=== PATIENT | male | born 1970 | race Caucasian/White ===

== ENCOUNTER 2016-11-19 21:30 | Observation (INO) | payer OTHER ==
[~2016-11-19] VITALS: Ht 175.3 cm; Wt 125.2 kg
--- NOTE | ~2016-11-19 | OR ---
Unit #: [id number] #: [id number] Patient: SUSAN DEL REAL [id number] [address] [address] [id number] I MR#: [id number] NAME: SUSAN DEL REAL ROOM: [facility] Date of Procedure: 11/20/2016 Admission Date: 11/20/2016 Surgeon: Gabe Crain M.D. : 1970 Attending Physician: Gabe Crain M.D. Primary Care Physician: Primary Care Physician No OPERATIVE REPORT PREOPERATIVE DIAGNOSIS Appendicitis. POSTOPERATIVE DIAGNOSIS Appendicitis. PROCEDURE PERFORMED Laparoscopic appendectomy. ORDNANCE HANDLER None. ANESTHESIA General. ESTIMATED BLOOD LOSS Minimal. IV FLUIDS 900 crystalloid. COMPLICATIONS None. INDICATIONS FOR PROCEDURE The patient is a 46-year-old with findings consistent with appendicitis. DESCRIPTION OF PROCEDURE The patient was taken to the operative theater and placed in supine position. General anesthesia was induced. The abdomen was prepped and draped. A 5-mm Optiview trocar was placed in left of the midline without difficulty. The abdomen was insufflated to 15 mmHg with CO2. The patient was placed in Trendelenburg. I placed a right lower quadrant 10 mm and left lower quadrant 5 mm ports. General inspection of the abdomen revealed acute suppurative appendicitis. I mobilized the cecum as well as the appendix from its retroperitoneal attachments using Bovie electrocautery. I fired a ADRIAN stapler across the base of the appendix as well as the mesoappendix. This was then placed into an Endobag and removed. I irrigated with normal saline, aspirated all fluids dry. Hemostasis was adequate. I removed the ports under direct vision and closed the fascia with 0 Vicryl and skin with 4-0 Vicryl. The patient tolerated the procedure well and was sent to the recovery room in good Unit #: [id number] #: [id number] Patient: SUSAN DEL REAL condition. Dictated by... Monico James/eligio TD: 11/21/2016 05:01 JOB #: [id number] OPERATIVE REPORT Page 1 of 1 X Gabe Crain MD PROCEDURE OPERATIVE NOTE
--- NOTE | ~2016-11-19 | CO ---
Unit #: [id number] #: [id number] Patient: SUSAN DEL REAL [id number] [address] [address] [id number] I MR#: [id number] NAME: SUSAN DEL REAL ROOM: [facility] Age: 46 Sex: M Admission Date: 11/20/2016 : 1970 Attending Physician: Gabe Crain M.D. Primary Care Physician: Primary Care Physician No Consultation Date: 11/20/2016 CONSULTATION REPORT BRIEF HISTORY The patient is a 46-year-old gentleman with acute onset of right lower quadrant abdominal pain and some nausea. No vomiting. No diarrhea. No change in bowel habits. No hematemesis. No bright red blood per rectum. No history of trauma. He describes his pain is right lower quadrant, crampy, nonradiating, but persistent. PAST MEDICAL HISTORY None. PAST SURGICAL HISTORY None. MEDICATIONS None. SOCIAL HISTORY He does drink on a daily basis. No smoking. FAMILY HISTORY Negative for GI malignancy. REVIEW OF SYSTEMS No cardiopulmonary complaints at this time. Else, 10 systems reviewed and negative. PHYSICAL EXAMINATION GENERAL: He is awake, alert, appropriate, currently afebrile. HEENT: Unremarkable. NECK: Supple. No JVD. Trachea midline. LUNGS: Clear to auscultation. Bilateral breath sounds symmetric. CARDIOVASCULAR: Regular rate and rhythm. ABDOMEN: Soft. It is tender in the right lower quadrant with point tenderness at McBurney point. There is no rebound. No masses palpable. EXTREMITIES: No clubbing, cyanosis, or edema. DIAGNOSTIC STUDIES LABORATORY RESULTS: Show a normal white count. Chemistries are normal. IMAGING STUDIES: CT scan shows pericecal inflammation. ASSESSMENT Appendicitis. Unit #: [id number] #: [id number] Patient: SUSAN DEL REAL PLAN Recommend laparoscopic appendectomy. Discussed risks and benefits in detail including the possibility of conversion to open. We will proceed as indicated. Dictated by... Monico James/eligio TD: 11/21/2016 02:53 JOB #: [id number] CONSULTATION REPORT Page 1 of 1 X Gabe Crain MD CONSULTATION REPORT
--- NOTE | ~2016-11-19 | BMI ---
[facility] Nutrition Therapy DATE: 11/20/16 Patient: SUSAN DEL REAL Physician: JANI Address: [address] [place] [address] Room/Bed: [address] [place] [address], Zip: [place] [address] Admit Date: 11/20/16 Date of : [birth year] Height: 5 9 Weight: 276 125.19 HIGH BMI NOTE: DX: 46 Y.O. MALE ADMITTED FOR APPENDICITIS ANTHROPOMETRICS: 5'9", WT: 275# (125 KG), BMI: 40.6 DIET: NPO RECOMMENDATIONS: 1. ONCE MEDICALLY FEASIBLE, ADVANCE DIET INDICATED TO CONSISTENT CARBOHYDRATE + HEALTHY HEART TO PROMOTE GRADUAL WEIGHT LOSS TOWARDS HEALTHY BMI (19.0-25.0) OR +/-10%IBW RD WILL F/U PER PROTOCOL Respectfully, CATY BABB MS, RD, LD [facility] Psychiatric cc: client file
--- NOTE | ~2016-11-19 | CT2 ---
[facility] A Service of [facility] RADIOLOGY TEXT RESULTS PATIENT: SUSAN DEL REAL LOCATION: A 241-01 : [birth year] UNIT #: [id number] AGE: [address]: Gabe Crain MD SEX: M ORDER DR: [id number] [facility] [address]. [place], [place] [address] [id number] I MR#: [id number] Acc #: [id number] NAME: SUSAN DEL REAL : 1970 SEX: M STUDY DATE/TIME: 11/20/2016 00:34 UNIT: C2A ROOM: 241 STUDY DESCRIPTION: CT Abd and Pelv W Cont Attending Physician: Gabe Crain M.D. Ordering Physician: Ari Castellano M.D. Primary Care Physician: No Primary Care Physician MEDICAL IMAGING REPORT This report is preliminary unless electronic signature is present EXAM Abdomen and pelvis CT, 11/20 at 00:34. INDICATIONS Abdominal pain with nausea and vomiting and diarrhea for 1 day. TECHNIQUE Axial images were obtained through the abdomen and pelvis following oral and IV contrast administration. Multiplanar reformats were obtained. This CT exam was performed with one or more of the following radiation dose reduction techniques: automatic exposure control, adjustment of mA and/or kV according to patient size, and iterative reconstruction. COMPARISON No comparison. FINDINGS ABDOMEN: There is some mild left lung base atelectasis. Gallbladder unremarkable. There is fatty infiltration of the liver. Solid organs are otherwise normal. No free fluid or adenopathy. GI tract is normal. PELVIS: The appendix is enlarged and fluid-filled. It is dilated to about 1.5 cm diameter and there is adjacent fat stranding. Findings are compatible with acute appendicitis. No abscess is seen. There is no free fluid or free air. The remainder of the GI tract is normal. Urinary bladder is normal. IMPRESSION 1. Exam is positive for acute appendicitis. There is no abscess, free fluid, or free air. The rest of the GI tract is normal. 2. Fatty infiltration of the liver. [facility] A Service of [facility] RADIOLOGY TEXT RESULTS PATIENT: SUSAN DEL REAL LOCATION: [place] [address] : [birth year] UNIT #: [id number] AGE: [address]: Gabe Crain MD SEX: M ORDER DR: Dictated by... Ari Rousseau Jr., M.D. THIS IS AN ELECTRONICALLY VERIFIED REPORT Ari Rousseau Jr., M.D. at 11/21/2016 4:56 AM MARIPOSA/sylvie TD: 11/20/2016 21:42 JOB #: [id number] MEDICAL IMAGING REPORT Page 1 of 1 COPY
[2016-11-19 23:26] LABS: BASOPHIL% 0.2 % (0-2.5); DIFF IND YES; HEMOGLOBIN 14.2 gm/dL (13.0-16.0); LYMPHOCYTE# 1.8 X10e3 (1.0-3.5); LYMPHOCYTE% 7.9 % (17.0-45.0); MEAN CELL VOLUME 84.8 FL (83-96); MEAN PLATELET VOLUME 7.7 FL (6.5-11.5); MONOCYTE# 1.3 X10e3 (0-1.0); MONOCYTE% 5.9 % (3.0-12.0); NEUTROPHIL# 19.6 X10e3 (1.5-7.1); PLATELET COUNT 363 X10e3 (140-420); RED BLOOD COUNT 5.07 X10e (3.90-5.60); RED CELL DISTRIBUTION WIDTH 13.6 % (11.0-15.5); WHITE BLOOD COUNT 22.8 X10e3 (4.0-10.5)
[2016-11-19 23:37] LABS: ALBUMIN SERUM 4.4 g/dL (3.5-5.0); BILIRUBIN, DIRECT 0.2 mg/dL (0.0-0.2); BILIRUBIN,INDIRECT 0.8 mg/dL (0.0-0.9); BUN/CREATININE RATIO 16.36; CALCIUM SERUM 9.4 mg/dL (8.4-10.2); CREATININE SERUM 1.1 mg/dL (0.6-1.4); GLOM FILT RATE Estimated 80.1 mL/min (>60); POTASSIUM 3.6 mmol/L (3.5-5.1); PROTEIN TOTAL SERUM 8.1 g/dL (6.0-8.3)
[2016-11-19 23:39] LABS: PLATELET ESTIMATE NORMAL (NORMAL)
[2016-11-19 23:40] LABS: RBC NORMAL YES
[2016-11-19 23:45] LABS: URINE SOURCE CLEAN CATCH
[2016-11-19 23:50] LABS: URINE APPEARANCE CLEAR; URINE BILIRUBIN NEG (NEG); URINE BLOOD TRACE (NEG); URINE COLOR DK YELLOW; URINE GLUCOSE NEG (NEG); URINE KETONE TRACE (NEG); URINE LEUKOCYTE ESTERASE NEG (NEG); URINE NITRATE NEG (NEG); URINE PROTEIN 2+ (NEG); URINE SPECIFIC GRAVITY 1.033 (1.003-1.035); URINE UROBILINOGEN 0.2 MG/DL (NEG)
[2016-11-19 23:53] LABS: CULTURE INDICATED? NO; URINE BACTERIA AUWI NEG (NEGATIVE); URINE SQUAMOUS EPITHELIAL CELL NONE SEEN /[HPF]; UWBCS1 AUWI 0-2 (0-5)
[2016-11-20] MEDS ORDERED: NORCO 7.5-3251 EACH PO (10:36)
== END 2016-11-20 11:32 | disposition home or self-care (01) | DRG 373 ==
LOC: CED 21:30 → CEDOF 11-20 01:40 → C2A 11-20 02:29
DX: K35.3 Acute appendicitis with localized peritonitis (principal)
CPT/HCPCS: 36415; 74177; 80048; 80076; 81003; 82150; 83690; 85025; 88304; 96361; 96365; 96372; 96374; 96375; 96376; 99285; G0378; J0330; J1100; J1644; J1885; J2250; J2270; J2405; J2543; J2710; J3010; Q9967